=== PATIENT | female | born 1985 ===

== ENCOUNTER 2019-08-14 13:57 | Outpatient (CLI) | payer OTHER | END 2019-08-14 13:58 | disposition home or self-care (01) | LOC: SONOGRAMA 13:57 | DX: N64.4 Mastodynia (principal) ==

== ENCOUNTER 2020-09-21 06:00 | Day surgery (SDC) | payer OTHER ==
[2020-09-21] MEDS ORDERED: PERCOCET 5-3251 EACH PO (11:02)
[2020-09-21] MEDS ORDERED: NEURONTIN300 MG PO (11:02)
[2020-09-21] MEDS ORDERED: KETO10TA2 PO (11:03)
== END 2020-09-21 15:10 | disposition home or self-care (01) ==
LOC: CIR.AMB 06:00
PROVIDERS: ATTEND Surgery
DX: K60.1 Chronic anal fissure (principal); K64.8 Other hemorrhoids; Z20.828 Contact with and (suspected) exposure to other viral communicable diseases